=== PATIENT | female | born 2000 | race Two or more races ===

== ENCOUNTER 2022-10-28 09:13 | Emergency (ER) | payer OTHER ==
[~2022-10-28] VITALS: Ht 162.6 cm; Wt 64.3 kg
[2022-10-28 09:40] VITALS: BP 126/82
[2022-10-28] MEDS ORDERED: AMOX500T86 PO (09:47)
[2022-10-28] MEDS ORDERED: NAPR500T31 PO (09:47)
== END 2022-10-28 09:55 | disposition home or self-care (01) ==
LOC: ER 09:13
DX: S00.81XA Abrasion of other part of head, initial encounter (principal); Z88.1 Allergy status to other antibiotic agents; Z88.8 Allergy status to other drugs, medicaments and biological substances; W55.03XA Scratched by cat, initial encounter; Y93.89 Activity, other specified; Y92.89 Other specified places as the place of occurrence of the external cause; Y99.8 Other external cause status